=== PATIENT | male | born 1955 ===

== ENCOUNTER → 2024-07-29 08:47 | Outpatient (REF) | payer OTHER, SELFPAY | LOC: DHSLP 08:47 | PROVIDERS: ATTENDING PHYSICIAN Nurse Practitioner; FAMILY PHYSICIAN Internal Medicine | DX: G47.30 Sleep apnea, unspecified (principal); R06.83 Snoring | CPT/HCPCS: 95800 ==

== ENCOUNTER 2024-09-25 05:57 | Day surgery (SDC) | payer OTHER, SELFPAY ==
[2024-09-04 08:02] VITALS: BMI 27.3
[2024-09-04 08:32] LABS: Hematocrit 46.2 % (39.0-52.0); Hemoglobin 15.4 g/dL (13.0-18.0); Mean Corp Hgb Conc. 33.3 g/dL (33.0-37.0); Mean Corpuscular Volume 91.5 fL (80.0-94.0); Nucleated Red Blood Cells % 0 % (-); Platelet Count 143 10^3/uL (130-400); Red Cell Dist. Width 13.4 % (11.5-14.5)
[2024-09-04 08:44] LABS: INR 2.11; PT 23.8 Sec (11.4-14.6)
[2024-09-04 09:35] LABS: ALT (SGPT) 58 U/L (0-50); AST (SGOT) 33 U/L (17-59); Albumin 4.5 g/dl (3.5-5.0); Alkaline Phosphatase 53 U/L (38-126); Blood Urea Nitrogen 20 mg/dl (9-20); Calcium 9.6 mg/dl (8.4-10.2); Carbon Dioxide 30 mmol/L (22-30); Chloride 106 mmol/L (98-107); Estimated Creatinine Clearance 73 ml/min; Glucose 104 mg/dl (70-99); Magnesium 2.1 mg/dl (1.6-2.3); Potassium 4.3 mmol/L (3.5-5.1); Sodium 143 mmol/L (135-145); Total Protein 7.0 g/dl (6.3-8.2); eGFR > 60.00
--- NOTE | 2024-09-22 12:30 | OID.L.PAT ---
Pulmonary Nodule Pat Letter
- -
09/22/24
SHON BOOKER
[facility]
[place], [place]
Deepa MENENDEZ,
A pulmonary nodule was seen on an imaging study done by [facility]. This was reviewed by the [facility] Pulmonary Nodule Advisory Board and the following recommendation was made:
Recommendation: Per Fleischner Society Guidelines for incidentally detected Pulmonary Nodules, if patient has increased risk factors for lung cancer, follow up CT Chest in one year recommended. If patient does not have increased risk factors, no
further follow up is required.
If you have any questions, please do not hesitate to contact your primary care physician. If you are in need of a Physician, you can go to [email or web address] and click on 'Find a Provider'. Type 'Family Medicine' in the search.
Oncology Nurse Navigator
[facility]
[phone]
--- NOTE | 2024-09-22 12:31 | OID.L.REC ---
Pulmonary Nodule Follow Up
- Recommendation
09/22/24
Pulmonary Nodule Review Recommendations
Your patient, SHON BOOKER, had a pulmonary nodule seen on an imaging study done on 09/04/2024 in the [facility] Radiology Department.
This was reviewed by the [facility] Pulmonary Nodule Advisory Board and the following recommendation was made:
Recommendation: Per Fleischner Society Guidelines for incidentally detected Pulmonary Nodules, if patient has increased risk factors for lung cancer, follow up CT Chest in one year recommended. If patient does not have increased risk factors, no
further follow up is required.
If you have any questions, please do not hesitate to contact us.
Sincerely,
Oncology Nurse Navigator
[facility]
[phone]
[2024-09-25] VITALS (17 sets, daily range): BP systolic 114–162; BP diastolic 63–106; BMI 27.3
[2024-09-25 09:05] LABS: ACT-LR - POC 358 Seconds (116-155)
--- NOTE | 2024-09-25 09:26 | ITS.CL.ABL ---
Veterans' Coordinator - Ablation
Ablation
Procedure Report:
ELECTROPHYSIOLOGY ABLATION STUDY
DATE:: September 25, 2024�����������������������������REFERRING: Dr. Reid Antonio
INDICATION: Persistent supraventricular tachycardia in the form of atypical atrial flutter with an inferiorly directed P wave and positive throughout the precordium. Prior maze and mitral valve repair in [address] Garcia.
HISTORY: See H and P.� As above. P�flutter wave morphology would suggest either left atrial posterior wall or double loop reentry.
ANTIARRHYTHMIC DRUG: Sotalol 160 mg twice daily
PRE-PROCEDURE IVETH: No intracardiac thrombus on intracardiac ultrasound
PRESENTING RHYTHM: 230 ms atypical atrial flutter which was greater than 100 ms PPI greater than tachycardia cycle length from the right atrium and was also out of the circuit from the proximal coronary sinus, distal coronary sinus, and mitral
isthmus
'TIME-OUT':��called and confirmed.
SEDATION/ANESTHESIA:��provided via the anesthesia department using general anesthesia (LMA).
INTRAVENOUS/ARTERIAL ACCESS:
Left brachial venous - 7 Fr
Right femoral venous - 10 Fr, 8Fr
Left femoral venous - 8 Fr, 6 Fr
Left femoral arterial - 5 Fr
Ultrasound guidance for bilateral femoral vein access was utilized by me to obtain access with demonstration of normal anatomy
CHADS-VASC Score:
HAS-Bled Score
PROCEDURE:
1.��A decapolar CS catheter was placed within the CS for mapping and pacing.��This was also used as the reference catheter for the 3-D map. As above the right atrium was out of the circuit. The mitral valve was out of the circuit. The patient
degenerated into atrial fibrillation during mapping but there was a dense area of scar and fractionation in the posterior wall outside the left inferior pulmonary vein consistent with a limb of the patient's tachyarrhythmia. At baseline the right
pulmonary veins were isolated. The left superior pulmonary vein was circumferentially connected and the left inferior pulmonary vein was isolated ostially but there was electroanatomic signal in the antrum. Given the macro reentrant circuit, scar
pattern, and need to ablate the pulmonary veins we proceeded to transseptal puncture with biatrial grid mapping and ablation as below. Presumed mechanism was macro reentry utilizing the left atrial posterior wall and likely involving the scar in
the posterior rachel of the left inferior pulmonary vein.
2. The intracardiac ultrasound catheter was positioned in the RA to identify the FO for targeting of transseptal puncture, assist��in identification of the pulmonary vein ostia, monitoring pre and post ablation pulmonary vein flow velocities,
monitoring for 'bubble' formation during RF application as a sign of thermal injury,��and to monitor for pericardial effusion during mapping and ablation procedure.���Left atrial size, LV ejection fraction, and pulmonary vein flows were monitored
pre and post ablation procedure. The other valves were inspected and found to be free of significant regurgitation or stenosis.
3.��Half of the calculated heparin bolus was administered prior to the first transeptal puncture.��Transseptal puncture was performed to diagnose RA and LA pressure so that safety of LA mapping and ablation could be further assessed, and to access
the left atrium and pulmonary veins for mapping and ablation.��This entailed advancing an 16.8 Monegasque sheath, RF wire with dilator into the superior vena cava and withdrawing both (monitoring intracardiac ultrasound, fluoroscopy and tip pressure)
with the tip oriented toward the atrial septum.��The fossa ovalis was engaged (indicated by sudden displacement of the sheath tip as well as tenting of the fossa seen on intracardiac ultrasound).��Left atrial access required a pass with the
Brockenbrough needle extended.��Left atrial catheter position was confirmed by pressure monitoring (RA mean pressure 8 mm Hg and LA mean presure 14 mm Hg), LA saturation (99%),��as well as fluoroscopy.��The sheath was advanced over the dilator and
positioned in the left atrium.��This procedure was repeated for the Agilis sheath.��The remainder of the calculated heparin bolus was administered and heparin was
infused to maintain ACT at 300 -350 seconds throughout the case.
4.��RA pacing was performed via the proximal decapolar poles and LA pacing was performed via the distal decapolr poles.
5. The grid we catheter was first positioned at the His position for His Bundle recording which was tagged via the 3-D Navex sytem, and then passed to the RVA for RV pacing and recording.
6. The grid and Penta spline were placed in each of the LIPV, LSPV, RSPV and the RIPV.��
7.��Next, a 3-D map was created using Navex.���A 3-D reconstructed CT image was compared to the 3-D Navex map to assist in anatomic interpretation, mapping and ablation.��The CT image and the NavX image were fused.
8. The right pulmonary veins were isolated at baseline. First we performed pulmonary vein isolation of the left veins and all of in basket pose as the patient had degenerated into atrial fibrillation. Atrial fibrillation persisted despite
pulmonary vein isolation and then we turned our attention to the roof posterior wall and floor of the left atrium involving the patchy scar outside the left inferior pulmonary vein to homogenized this region. Atrial fibrillation terminated with
ablation in the scar outside the left inferior pulmonary vein. The patient was in persistent atrial fibrillation and atrial flutter prior to procedure. In sinus rhythm we completed our lesion sets in the posterior wall and demonstrated entrance
and exit block in all 4 pulmonary veins as well as electrical silence in the roof posterior wall and floor of the left atrium. A total of 52 lesions were given.
9. Normal sinus node AV node function were noted.
TOTAL FLOURO TIME: 12.1 minutes 123 mGy
TOTAL RF DURATION: 0 minutes
REVERSAL OF HEPARIN: 35 mg of protamine, slow IV administration
COMPLICATIONS:
None
Intracardiac US shows no pericardial effusion post ablation.
SUMMARY:��
Complex left atrial mapping and ablation.
Targeting of left atrial posterior wall flutter as well as atrial fibrillation. Reisolation of the left pulmonary veins. From the prior maze surgery the right pulmonary veins were chronically isolated.
RECOMMENDATIONS:
1. Ambulate in 4 hours
2. Resume anticoagulation
3.��I have no objection to discontinuation of sotalol
4.��Consider same-day discharge and outpatient follow-up with Dr. Reid Antonio
Copy to: Dr. Reid Antonio
[2024-09-25] MEDS: KEPPRA 500 MG PO (10:18)
[2024-09-25] MEDS: TOPROL XL 25 MG PO (11:09)
[2024-09-25 11:27] LABS: ACT-LR - POC > 397 Seconds (116-155)
--- NOTE | 2024-09-25 12:36 | W.PN.UPDATE ---
Update Note
Progress Note Update
CTSP R groin continues to have slow ooze even despite F08 sutures in place and multiple 20min holds by RN. Suture removed and continued to have slow ooze from groin, site soft, non tender. Cleansed site with ChloraPrep and injected 10cc of lidocaine
1% with Epi, with cessation of ooze, manual pressure held for 10min. Will continue to monitor closely, will still attempt for d/c home later today if groin remains stable. Dr. Ba aware and agrees with plan.
--- NOTE | 2024-09-25 14:16 | W.PN.UPDATE ---
Update Note
Progress Note Update
69 yo WM s/p PVI (same day). He denies cp, sob, oenida diet, voiding, EKG SR with PVC's and occasional bigeminey, asymptomatic. His R fem site no further bleeding after lido/epi injection, L groin c/d/i, soft, no HT. He will resume Xarleto tonight. We
will stop sotalol and continue metoprolol. Activity restrictions reviewed. He will f/u Dr. Antonio in 3 mo. He is for d/c home after 2p if groin stable.
== END 2024-09-25 14:33 | disposition home or self-care (01) ==
LOC: CATH 05:57
PROVIDERS: ATTENDING PHYSICIAN Internal Medicine Cardiovascular Disease; FAMILY PHYSICIAN Internal Medicine; REFERRING PHYSICIAN Internal Medicine Cardiovascular Disease
DX: I48.4 Atypical atrial flutter (principal); I48.0 Paroxysmal atrial fibrillation; I10 Essential (primary) hypertension; E78.5 Hyperlipidemia, unspecified; I27.20 Pulmonary hypertension, unspecified; G40.909 Epilepsy, unspecified, not intractable, without status epilepticus; M10.9 Gout, unspecified; Z79.899 Other long term (current) drug therapy; Z79.01 Long term (current) use of anticoagulants; R91.1 Solitary pulmonary nodule; I25.10 Atherosclerotic heart disease of native coronary artery without angina pectoris; I49.3 Ventricular premature depolarization
CPT/HCPCS: C1732; C1894; C1730; C1769; C1759; C1892; 36415; 75572; 80053; 83735; 85025; 85347; 85610; 86850; 86900; 86901; 93005; 93655; 93656; C1733; C1766; Q9967

== ENCOUNTER 2024-09-26 12:03 | Emergency (ER) | payer OTHER, SELFPAY ==
[2024-09-26 12:10] VITALS: BP 143/78
[2024-09-26 12:19] VITALS: BP 149/82
[2024-09-26 12:22] VITALS: BMI 27.0
[2024-09-26 12:44] LABS: Hematocrit 42.5 % (39.0-52.0); Hemoglobin 14.0 g/dL (13.0-18.0); Mean Corp Hgb Conc. 32.9 g/dL (33.0-37.0); Mean Corpuscular Volume 91.2 fL (80.0-94.0); Nucleated Red Blood Cells % 0 % (-); Platelet Count 141 10^3/uL (130-400); Red Cell Dist. Width 13.8 % (11.5-14.5)
[2024-09-26 12:59] LABS: ALT (SGPT) 43 U/L (0-50); AST (SGOT) 51 U/L (17-59); Albumin 4.3 g/dl (3.5-5.0); Alkaline Phosphatase 66 U/L (38-126); Blood Urea Nitrogen 17 mg/dl (9-20); Calcium 9.8 mg/dl (8.4-10.2); Carbon Dioxide 33 mmol/L (22-30); Chloride 105 mmol/L (98-107); Estimated Creatinine Clearance 74 ml/min; Glucose 135 mg/dl (70-99); Potassium 4.2 mmol/L (3.5-5.1); Sodium 142 mmol/L (135-145); Total Protein 6.5 g/dl (6.3-8.2); eGFR > 60.00
[2024-09-26 13:00] VITALS: BP 125/79
--- NOTE | 2024-09-26 13:36 | ED.GENMED ---
History of Present Illness
General
Chief Complaint: Post Operative Problem(s)
Source: patient
Exam Limitations: none
Time Seen by Provider: 09/26/24 13:06
Nursing documentation reviewed up to this point in time: agreed with
History of Present Illness
History of Present Illness:
69-year-old male with past medical history of atrial fibrillation currently taking Xarelto, seizure disorder presenting to the emergency department with concerns of bleeding from previous cath site during ablation that occurred yesterday. Site is
to the right femoral region. Required lidocaine epinephrine injection yesterday to control.
Review of Systems
Review of Systems
Allergies reviewed?: Yes
All Other Systems: ROS reviewed and negative except as documented in HPI and ROS
Phy Exam
Physical Exam
Physical Exam:
GENERAL: Alert , in no apparent distress
EYE: pupils equal and reactive
NECK: Supple, no significant adenopathy.
ENT: o/p clr, mmm.
CARDIAC: Regular rate and rhythm .
LUNGS: Clear breath sounds bilaterally, no acute respiratory distress, no wheezes/rales/rhonchi
ABDOMEN: Soft, without focal tenderness, no r/g, no cvat
NEUROLOGICAL: Alert and oriented, no focal neuro deficits
SKIN: Slow ooze from the right groin. But holding direct pressure does seem to be stopped. Does recur immediately after releasing pressure. Warm and dry, skin intact.
MUSCULOSKELETAL: No edema, well perfused.
PSYCH: Normal and appropriate interaction.
Course
Orders/Labs/Results
Orders:
Orders
09/26/24 12:29
Electrocardiogram (*1) Urgent
Reason for Study: Vertigo / Dizzy
EKG- Treatment ONCE
09/26/24 12:36
Complete Blood Count/With Diff Urgent
Comprehensive Metabolic Panel Urgent
09/26/24 13:21
US Groin (vascular exam) RT Urgent
Comment:
Reason For Exam: eval site of recent cath/bleeding looking for pseu
Abnormal Lab Results
09/26/24
12:36
WBC 15.6 H 10^3/uL
(4.8-10.8)
RBC 4.66 L 10^6/uL
(4.70-6.10)
MCHC 32.9 L g/dL
(33.0-37.0)
MPV 10.6 H fL
(7.4-10.4)
Abs Immat Gran (auto) 0.1 H 10^3/uL
(0-0.05)
Absolute Neuts (auto) 11.7 H 10^3/uL
(1.4-6.5)
Absolute Monos (auto) 1.3 H 10^3/uL
(0.1-0.6)
Lymphocytes % 15.7 L %
(20.5-51.1)
Carbon Dioxide 33 H mmol/L
(22-30)
Glucose 135 H mg/dl
(70-99)
09/26/24 12:36
09/26/24 12:36
Vital Signs
Initial and Last Documented VS:
Initial Vital Signs
Temp Pulse Resp BP Pulse Ox
98.9 F 56 18 143/78 98
09/26/24 12:10 09/26/24 12:10 09/26/24 12:10 09/26/24 12:10 09/26/24 12:10
Last Documented Vital Signs
Temp Pulse Resp BP Pulse Ox
98.9 F 70 18 127/71 97
09/26/24 12:10 09/26/24 15:15 09/26/24 15:15 09/26/24 14:44 09/26/24 15:15
MDM/Problems Addressed
MDM/Problems Addressed:
69-year-old male presenting to the emergency department today with concerns of bleeding from a right sided femoral cath insertion site. Slow ongoing ooze here. Case was discussed with cardiology the recommended local injection of epinephrine and
lidocaine. This was performed and seem to have initial good control. He was advised to hold direct pressure for at least 15 minutes. Additionally ultrasound was ordered to ensure there is no pseudoaneurysm. Ultrasound normal. No bleeding for
multiple hours while here in the ER. Stable for close outpatient follow-up. Patient was additionally seen by cardiology while here in the ER as well.
*Pulse Oximetry
SaO2: 97
Oxygen Mode of Delivery: Room air
Patient hypoxic: no (97)
*Critical Care Note
Total Time (30-74mins, 75-104mins- exclusive of procedures): Not Applicable
ED Attending Note
-
Portions of this chart may have been created with voice recognition software.� Occasional wrong word or��sound alike� substitutions may have occurred due to the inherent limitations of voice recognition software.
Discharge Plan
Departure
Patient Disposition: Home (Routine Discharge)
Date of Disposition: 09/26/24
Time of Disposition: 16:57
Patient with high blood pressure during this ER visit?: No
Condition: Good
Covid-19: Not Applicable
Discharge Problem:
Bleeding at insertion site
Instructions: Bleeding After Surgery
Prescriptions:
No Action
divalproex 500 MG tablet extended release 24 hr
500 mg PO DAILY
levetiracetam [Keppra] 500 mg Tablet
500 mg PO BID
metoprolol succinate 25 mg Tablet Extended Release 24 Hr
25 mg PO DAILY
Xarelto 20 mg Tablet
20 mg PO DAILY
atorvastatin 10 mg Tablet
10 mg PO DAILY
indomethacin 50 mg Capsule
50 mg PO BID PRN (Reason: gout)
Referrals:
Adiel Dalton MD [Family Provider, Physical Medicine and Rehab]
Activity Restrictions/Additional Instructions:
You came to the emergency department today with concerns of bleeding from your recent surgical site. Here bleeding is now controlled. Ultrasound confirmed there was no pseudoaneurysm. Please follow closely with cardiology. Return for any
worsening, new or concerning symptoms.
Interventions
Interventions:
*Risk Screen - Suicide Last Done: 09/26/24 12:10
*General Assessment Last Done: 09/26/24 12:10
*Neglect/Abuse Screening Last Done: 09/26/24 12:10
ED-Skin Assessment Last Done: 09/26/24 12:22
Discharge Date and Time
Print Language: [id number]
[2024-09-26 14:44] VITALS: BP 127/71
== END 2024-09-26 17:10 | disposition home or self-care (01) ==
LOC: EMR 12:03
PROVIDERS: Emergency Medicine; EMERGENCY PHYSICIAN Emergency Medicine; FAMILY PHYSICIAN Internal Medicine
DX: L76.22 Postprocedural hemorrhage of skin and subcutaneous tissue following other procedure (principal); Y84.0 Cardiac catheterization as the cause of abnormal reaction of the patient, or of later complication, without mention of misadventure at the time of the procedure; I48.91 Unspecified atrial fibrillation; G40.909 Epilepsy, unspecified, not intractable, without status epilepticus; Z79.01 Long term (current) use of anticoagulants
CPT/HCPCS: 99284; 80053; 85025; 93005; 93926